=== PATIENT | female | born 1940 | race Caucasian/White ===

== ENCOUNTER 2019-03-10 21:29 | Emergency (ER) | payer MEDICARE ==
[~2019-03-10] VITALS: Ht 160 cm; Wt 47.6 kg
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
--- NOTE | 2019-03-10 21:40 | NUR ---
ED Nurse Note: Blood sample sent to lab.
[2019-03-10] MEDS ORDERED: Sodium Chloride 1,400 ML IVLG ONE (21:45)
--- NOTE | 2019-03-10 22:10 | NUR ---
ED Nurse Note: Urine sample sent to lab.
[2019-03-10 22:23] LABS: AMMONIA 48 umol/L (11-32)
--- NOTE | 2019-03-10 22:23 | NUR ---
ED Nurse Note: Pt went to CT scan.
[2019-03-10 22:24] LABS: ANION GAP 13 mmol/L (5-15); BLOOD UREA NITROGEN 94 mg/dL (7-18); CALCIUM 11.5 MG/DL (8.5-10.1); CARBON DIOXIDE 24 MMOL/L (21-32); CHLORIDE 123 MMOL/L (98-107); CREATININE 1.9 MG/DL (0.55-1.30); POTASSIUM 3.9 MMOL/L (3.5-5.1); SODIUM 160 MMOL/L (136-145)
[2019-03-10 22:29] LABS: APPEARANCE,URINE CLEAR; BILIRUBIN, URINE NEGATIVE (NEGATIVE); GLUCOSE, URINE (UA) NEGATIVE (NEGATIVE); KETONES,URINE 1+ (NEGATIVE); LEUKOCYTE ESTERASE ,URINE NEGATIVE (NEGATIVE); NITRITE,URINE NEGATIVE (NEGATIVE); PH,URINE 5 (4.5-8.0); PROTEIN,URINE 2+ (NEGATIVE); UROBILINOGEN,URINE NORMAL MG/DL (0.0-1.0)
[2019-03-10 22:38] LABS: ALANINE AMINOTRANSFERASE 51 U/L (12-78); ALBUMIN 3.4 G/DL (3.4-5.0); ALBUMIN/GLOBULIN RATIO 0.7 (1.0-2.7); ALKALINE PHOSPHATASE 130 U/L (46-116); ASPARTATE AMINO TRANSFERASE 64 U/L (15-37); BILIRUBIN,TOTAL 1.8 MG/DL (0.2-1.0); CKMB 5.9 NG/ML (0.0-3.6); CREATINE KINASE 345 U/L (26-308); PHOSPHORUS 4.6 MG/DL (2.5-4.9)
[2019-03-10 22:40] LABS: BILIRUBIN,DIRECT 0.4 MG/DL (0.0-0.3)
--- NOTE | 2019-03-10 22:41 | Diagnostic Imaging Report ---
Indications: Altered mental status Technique: Spiral acquisitions obtained through the brain. Angled axial and coronal 5 x 5 mm slices were reconstructed. Total dose length product 1284.6 mGycm. CTDI vol(s) 70.38 mGy. Dose reduction achieved using automated exposure control Comparison: None. Findings: There is age-related enlargement of the ventricles and extra-axial CSF spaces. There is periventricular deep white matter low-attenuation, consistent with chronic microvascular ischemic change. Old lacunar infarct is seen in the right basal ganglia. No acute intracranial hemorrhage or edema, mass effect, nor midline shift. Otherwise normal shultz-white differentiation. Visualized orbits are unremarkable. There is minimal ethmoid sinus disease. The mastoids are clear. The calvarium is intact. Impression: Chronic and age-related changes, including old right basal ganglia lacunar infarct Negative for acute intracranial bleed or mass effect Minimal sinus disease The CT scanner at [facility] is accredited by the [employer] and the scans are performed using protocols designed to limit radiation exposure to as low as reasonably achievable to attain images of sufficient resolution adequate for diagnostic evaluation.
[2019-03-10 22:45] LABS: COLOR,URINE YELLOW
[2019-03-10 22:47] VITALS: BP 159/83
--- NOTE | 2019-03-10 22:50 | NUR ---
ED Nurse Note: CBC repect to Lab.
[2019-03-10 23:05] LABS: BASOPHILS % (AUTO) 0.5 % (0.0-2.0); EOSINOPHILS % (AUTO) 0.2 % (0.0-3.0); HEMATOCRIT 50.1 % (37.0-47.0); HEMOGLOBIN 16.1 G/DL (12.0-16.0); LYMPHOCYTES % (AUTO) 6.9 % (20.0-45.0); MEAN CORPUSCULAR VOLUME 88 FL (80-99); MONOCYTES % (AUTO) 11.6 % (1.0-10.0); NEUTROPHILS % (AUTO) 80.9 % (45.0-75.0); PLATELET COUNT 324 K/UL (150-450); RED BLOOD COUNT 5.69 M/UL (4.20-5.40); RED CELL DISTRIBUTION WIDTH 13.3 % (11.6-14.8); WHITE BLOOD COUNT 17.2 K/UL (4.8-10.8)
--- NOTE | 2019-03-10 23:30 | NUR ---
ED Nurse Note: Lactic acid repect sent to lab.
[2019-03-11] MEDS ORDERED: Cefepime HCl 2 GM in D5W 55 ML IVPB ONE (00:30)
[2019-03-11] MEDS ORDERED: Vancomycin 1 GM in NS 275 ML IVPB ONE (00:30)
[2019-03-11 02:00] VITALS: BP 140/78
--- NOTE | 2019-03-11 02:00 | NUR ---
ED Nurse Note: Pt asleep when visited, VSS.
[2019-03-11 03:57] VITALS: BP 140/79
--- NOTE | 2019-03-11 05:00 | NUR ---
ED Nurse Note: Jorden RODRIGUEZ accept Pt and will transfer Pt to room 2817-B.
[2019-03-11 05:29] VITALS: BP 97/65
--- NOTE | 2019-03-11 05:30 | NUR ---
ED Nurse Note: Report given to Jorden Johnston, Pt will transfer around 0545 to room 2817-B.
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
[2019-03-11 06:20] VITALS: BP 98/68
[2019-03-11 06:22] VITALS: BP 98/68
--- NOTE | 2019-03-11 12:11 | Diagnostic Imaging Report ---
Indication: Pelvic pain Technique: One view of the pelvis Comparison: none Findings: No acute fractures. No dislocations. The joint spaces are preserved. Impression: Negative
--- NOTE | 2019-03-11 12:12 | Diagnostic Imaging Report ---
Indication: Shortness of breath Technique: One view of the chest Comparison: none Findings: There is mild elevation of the left hemidiaphragm. The lungs and pleural spaces are clear. Heart size is normal. The aorta is tortuous and calcified. The upper mediastinum is unremarkable. Impression: Negative
== END 2019-03-11 07:17 | disposition short-term general hospital (02) ==
LOC: EDBD 21:29 → EMR 22:15
DX: R41.82 Altered mental status, unspecified (principal); A41.9 Sepsis, unspecified organism; N17.9 Acute kidney failure, unspecified; E87.2 Acidosis; J34.9 Unspecified disorder of nose and nasal sinuses
CPT/HCPCS: 36415; 70450; 71045; 72170; 80053; 81003; 82140; 82248; 82550; 82553; 82962; 83605; 83690; 83735; 83880; 84100; 84484; 85025; 85610; 85730; 86850; 86900; 86901; 96361; 96365; 96368; 99291; G0480; J3370; J7050; 80329; 87040